=== PATIENT | male | born 1950 | race Caucasian/White ===

== ENCOUNTER 2018-10-22 23:55 | Inpatient (IN) | payer OTHER, MEDICARE ==
[~2018-10-22] VITALS: Ht 172.7 cm; Wt 76.7 kg
[2018-10-23 00:03] VITALS: BP 137/83
[2018-10-23 00:23] LABS: MCH 29.9 pg (26.0-34.0); MCHC 33.3 g/dL (28.0-37.0); MCV 89.7 fL (80.0-100.0); PLATELET COUNT 210 thou/uL (150-400); RBC 5.01 mil/uL (4.50-6.00); RDW 13.7 % (10.5-14.5); WBC 15.4 thou/uL (4.0-11.0)
[2018-10-23 00:31] LABS: CALCIUM 9.3 mg/dL (8.5-10.1); CREATININE 1.1 mg/dL (0.7-1.3); POTASSIUM 3.8 mmol/L (3.5-5.1)
[2018-10-23 00:37] LABS: APTT 24.3 Seconds (24.5-32.8); PROTIME 10.6 Seconds (9.3-11.4)
[2018-10-23 00:41] LABS: ALBUMIN 3.7 g/dL (3.4-5.0); MAGNESIUM 1.8 mg/dL (1.8-2.4); TOTAL BILIRUBIN 0.2 mg/dL (<0.1-1.0); TOTAL PROTEIN 6.7 g/dL (6.4-8.2); TROPONIN-I 0.08 ng/mL (<0.06)
[2018-10-23 00:50] LABS: ATYPICAL LYMPHS 1 %
[2018-10-23 02:00] VITALS: BP 126/74
[2018-10-23 02:10] LABS: CHOLESTEROL 165 mg/dL (<200); HDL CHOLESTEROL 40 mg/dL (>40); LDL CHOLESTEROL 99 mg/dL (<100); SERUM ASSESSMENT Clear; TC:HDL 4.1 Ratio (Not establshd); TRIGLYCERIDE 132 mg/dL (<150); VLDL 26 mg/dL (<40)
--- NOTE | 2018-10-23 05:25 | NUR ---
ASSUME CARE 0200. DENIES ANY PAIN/ TOLERATES ACTIVITY WELL. ASSESSMENT CHARTED. PROGRESSING TOWARDS POC. PLAN IS TO STAY NPO AND CONSULT CARDIOLOGY FOR FURTHER CARE. SR NOTED ON MONITOR. WILL CONTINUE TO MONITOR AND FOLLOW WITH POC
[2018-10-23 07:15] VITALS: BP 133/93
[2018-10-23] MEDS ORDERED: ATORVASTATIN CA40 MG PO (10:12)
[2018-10-23] MEDS ORDERED: ASPIR 8181 MG PO (10:12)
[2018-10-23] MEDS ORDERED: EFFIENT10 MG PO (10:12)
[2018-10-23] MEDS ORDERED: TOPROL XL25 MG PO (10:12)
[2018-10-23 12:00] VITALS: BP 141/82
--- NOTE | 2018-10-23 12:02 | CATHLAB ---
[facility] [address] [place] [address] INVASIVE PROCEDURE REPORT Name: COLLINS LEVY Room #: 200-I ADM IN [facility]#: [id number] ������������� Admission: 10/23/18 ������������� Attend Phys: Jim Mason MD Discharge: ��� ������������� ��� Date of : 54 Date of Service: 10/23/18 1202 �� Report #: [id number] �������� ��������������������������������������������[id number] THIS REPORT FOR: //name// APPROVED REPORT Study performed: 10/23/2018 08:23:09 Patient Details Patient Status: In-Patient Room #: The patient is a 68 year-old male Event Personnel Piyush Pinzon Body Repairer, Roge Sow RN, Yuliana Herman Monitor, Archana Russell Scrub Procedures Performed Art Access - R femoral artery* 53777 Initial Mod Sed Same Phys/QHP Gr5y 180567 63055 Mod Sed Same Phys/QHP Ea 807275 Left Heart Cath w/or w/o Coronaries [id number] [facility] Place w/wo Plasty Single LAD 410181 Hemostasis w/ Mynx Indication Non-STEMI (>6 hrs to = 12 hrs), Chest pain Procedure Narrative The patient was brought urgently to the Cardiac Catheterization Laboratory and was prepped and draped in a sterile manner. The Right Groin^ was infiltrated with 1% Lidocaine subcutaneous anesthesia. A PINNACLE 6FR Sheath #[id number] sheath was inserted into the RFA^. Coronary angiography was performed using coronary diagnostic catheters. The right coronary system was accessed and visualized with a JR 4 catheter. The left coronary system was accessed and visualized with a JL 4.5 catheter. The left ventricle was accessed and visualized with a Pigtail catheter. Left ventricular/Aortic Valve gradient assessed via catheter pullback. Left ventriculogram was performed in REYNA projection. Closure device was deployed with a 6 Fr Mynx. The patient tolerated the procedure well and there were no complications associated with the procedure. There was no hematoma. Intraoperative Conscious Sedation Sedation start time: 08:40 Case end Time: 09:44 Fentanyl 100 mcg Versed [address] [address] INVASIVE PROCEDURE REPORT Name: COLLINS LEVY Room #: 200-I [facility]#: [id number] ������������� Admission: 10/23/18 ������������� Attend Phys: Jim Mason MD Discharge: ��� ������������� ��� Date of : 54 Date of Service: 10/23/18 1202 �� Report #: [id number] �������� ��������������������������������������������[id number] Fluoro Time: 11.58 minutes Dose: DAP 68821.00 cGycm2 1864 mGy Contrast Type and Amount: Omnipaque 235 ml Coronary Angiography The patient's coronary anatomy is right dominant. Diagnostic Cath Left Main Normal left main LAD The left anterior descending exhibited a severe, ulcerated proximal plaque with 95-99% stenosis There appeared to be distal embolization to the very apical portion of the LAD Diagonal 1 Small first diagonal branch, normal Circumflex The circumflex was large and comprised of a single bifurcating marginal branch, angiographically normal OM1 Large bifurcating marginal branch, angiographically normal Right Coronary Normal dominant right coronary R PDA Large angiographically normal posterior descending branch RPLV Large, angiographically normal posterolateral branch Ramus Large ramus branch, angiographically normal Left Ventriculography The left ventricle is normal in size with abnormal contractility. The left ventricular ejection fraction is estimated to be 55-60%. Left ventricular wall motion abnormalities are present. There is no mitral insufficiency. Apical and inferoapical hypokinesis Hemodynamics The aortic pressure is 131/82 mmHg with a mean of 103 mmHg. The left ventricular pressure is 124/8 mmHg with a mean of mmHg. The left ventricular end diastolic pressure is 24 mmHg. PCI Technique Lesion Anticoagulation was achieved with Heparin, Integrilin. Patient was preloaded with Effient. Percutaneous coronary intervention was performed on the proximal left anterior descending artery segment. The lesion stenosis prior to intervention was 99% with DESTINEE 3 flow. A LAUNCHER 6FR EBU 4 #[id number] Guide Catheter was used to engage the ostium. A Luge Wire .014 x 182CM #[id number] Interventional Guidewire was used to cross the lesion. BALLOON DILATION A Balloon catheter Euphora RX 3.0 x 12 #[id number] was inserted and [facility] [address] [place] [address] INVASIVE PROCEDURE REPORT Name: FAHAD LEVYAnnita Oshea Room #: 200-I [facility] IN ..#: [id number] ������������� Admission: 10/23/18 ������������� Attend Phys: Jim Mason MD Discharge: ��� ������������� ��� Date of : 54 Date of Service: 10/23/18 1202 �� Report #: [id number] �������� ��������������������������������������������[id number] inflated up to 12.00atm for 27seconds. Repeat angiography revealed the following post-dilatation results: moderate residual stenosis. STENT DEPLOYMENT A drug-eluting stent XIENCE ANETA RX 3.5 X 15 #[id number] was inserted and inflated up to 12.00atm for 30seconds. Repeat angiography revealed the following post-stent deployment results: 0% residual stenosis. POST STENT DEPLOYMENT BALLOON DILATION A Balloon catheter Euphora NC RX 3.5 x 12 #[id number] was inserted and inflated up to 18.00atm for 32seconds. Additional Inflation: 22.00atm for 31seconds. Final angiography reveals 0 % stenosis with DESTINEE 3 flow. Conclusion 1. Globally normal left ventricular systolic function with apical and inferoapical hypokinesis. Ejection fraction 55% 2. Normal left main 3. Severe proximal 95-99% LAD stenosis, stented with a 3.5 x 15 Aneta medicated stent, post-dilated to 3.6mm 4. Normal circumflex and dominant right coronary. Medications Administered Aspirin (any) Beta Maral (any) Statin (any) Prasugrel Cardiac Rehabilitation Referral Smoking Cessation ��������������������������������������������� <ELECTRONICALLY SIGNED> ���������������������������������������� By: Piyush Pinzon MD, [facility] ��������������������������������������������� 10/23/181201 01 01 Piyush Pinzon MD, FACC /INF
--- NOTE | 2018-10-23 12:13 | EKG ---
[place] [address] [facility] [place] [address] ELECTROCARDIOGRAM REPORT Name: COLLINS LEVY Room #: 200-I ADM IN [facility].#: [id number] ������������������ Admission: 10/23/18 ������������������ Attend Phys: Jim Mason MD Discharge: ������������������ Date of : 54 Report #: [id number] ����������������������������������������������������������������� [id number] THIS REPORT FOR: //name// [facility] ED Test Date: 2018-10-22 Test Time: 23:58:43 Pat Name: COLLINS LEVY Department: Room: 200 Gender: M Credit Risk Officer: MUNA : 1950 Requested By: Tommy Mendez Order Number: [id number] MD: Piyush Pinzon Measurements Intervals [place] Rate: 69 P: 60 [place]: 168 QRS: 21 QRSD: 85 T: 22 QT: 402 QTc: 431 Interpretive Statements Sinus rhythm Left atrial enlargement RSR' in V1 or V2, probably normal variant No previous ECG available for comparison Electronically Signed On 10-23-2018 12:12:53 CDT by Piyush Pinzon [email or web address] ��������������������������������������������� <ELECTRONICALLY SIGNED> ���������������������������������������� By: Piyush Pinzon MD, [facility] ��������������������������������������������� 10/23/18 1212 57 Piyush Pinzon MD, [facility] /EPI
--- NOTE | 2018-10-23 12:18 | EKG ---
[place] [address] [facility] [place] [address] ELECTROCARDIOGRAM REPORT Name: COLLINS LEVY Room #: 200-I ADM IN .R.#: [id number] ������������������ Admission: 10/23/18 ������������������ Attend Phys: Jim Mason MD Discharge: ������������������ Date of : 54 Report #: [id number] ����������������������������������������������������������������� [id number] THIS REPORT FOR: //name// [facility] Test Date: 2018-10-23 Test Time: 10:33:35 Pat Name: COLLINS LEVY Department: Room: 200 I Gender: M Property Management Supervisor: Ibeth REYNOLDS : 1950 Requested By: Piyush Pinzon Order Number: [id number] MD: Piyush Pinzon Measurements Intervals [place] Rate: 58 P: 37 [place]: 187 QRS: 1 QRSD: 86 T: 3 QT: 437 QTc: 430 Interpretive Statements Sinus bradycardia Otherwise no significant abnormality No previous ECG available for comparison Electronically Signed On 10-23-2018 12:18:06 CDT by Piyush Pinzon [email or web address] ��������������������������������������������� <ELECTRONICALLY SIGNED> ���������������������������������������� By: Piyush Pinzon MD, [facility] ��������������������������������������������� 10/23/18 1218 1033 1033 Piyush Pinzon MD, FACC /EPI
--- NOTE | 2018-10-23 15:52 | NUR ---
AAOX4. CALM, COOPERATIVE. DOWN EARLY THIS SHIFT FOR CARDIAC CATH. BACK AT 1010, REPORT FROM MARLO JO. RECEIVED ASA AND EFFIENT DOWNSTAIRS POST PROCEDURE. VS AND BEDREST ORDERED. DRESSING RIGHT GROIN CDI, SITE SOFT AND NONPAINFUL. FREQUENT CHECKS; WILL CONTINUE TO MONITOR.
[2018-10-23 19:25] VITALS: BP 140/61; BP 140/78
[2018-10-24] VITALS: BP 109/68
[2018-10-24 04:00] VITALS: BP 101/67
[2018-10-24 05:23] LABS: HEMATOCRIT 45.7 % (42.0-52.0); HEMOGLOBIN 15.6 gm/dL (14.0-18.0); MCH 30.8 pg (26.0-34.0); MCHC 34.1 g/dL (28.0-37.0); MCV 90.5 fL (80.0-100.0); RBC 5.05 mil/uL (4.50-6.00); RDW 13.5 % (10.5-14.5); WBC 9.3 thou/uL (4.0-11.0)
[2018-10-24 05:44] LABS: ALBUMIN 3.3 g/dL (3.4-5.0); CALCIUM 8.6 mg/dL (8.5-10.1); TOTAL BILIRUBIN 0.7 mg/dL (<0.1-1.0); TOTAL PROTEIN 6.3 g/dL (6.4-8.2)
--- NOTE | 2018-10-24 05:50 | NUR ---
ASSUME CARE 1900. PT/VITALS STABLE. DENEIS ANY PAIN. UP AD MAILE. ADDEQUATE REST NOTED. RIGHT GROIN SITE CDI. ASSESSMENT CHARTED. PROGRESSING WELL WITH POC. PLAN IS POSSIBLE DISCHARGE HOME TODAY. WILL CONTINUE TO MONITOR ANDFOLLOW WITH POC
[2018-10-24 05:54] LABS: TROPONIN-I 2.21 ng/mL (<0.06)
[2018-10-24 07:25] VITALS: BP 116/72
--- NOTE | 2018-10-24 12:00 | NUR ---
DISCHARGED TO HOME ACCOMPANIED BY . RIGHT GROIN CLEAN AND DRY WITHOUT INDERATION. GOOD APPETITE. DENIES PAIN. GOOD TOLERATION OF ACTIVITY. ON ROOM AIR. NO EDEMA.
[2018-10-24 12:05] VITALS: BP 116/72
[2018-10-24 12:36] VITALS: BP 116/72
--- NOTE | 2018-10-25 10:21 | EKG ---
[place] [address] [address] [facility] [place] [address] ELECTROCARDIOGRAM REPORT Name: COLLINS LEVY Room #: 200-I DIS IN M.R.#: [id number] ������������������ Admission: 10/23/18 ������������������ Attend Phys: Jim Mason MD Discharge: 10/24/18 ������������������ Date of : 54 Report #: [id number] ����������������������������������������������������������������� [id number] THIS REPORT FOR: //name// [facility] Test Date: 2018-10-24 Test Time: 07:38:31 Pat Name: COLLINS LEVY Department: Room: 200 I Gender: M Renewals Specialist: Ranjit SNEED : 1950 Requested By: Piyush Pinzon Order Number: [id number] MD: Piyush Pinzon Measurements Intervals [place] Rate: 61 P: 32 [place]: 183 QRS: -1 QRSD: 93 T: -2 QT: 424 QTc: 427 Interpretive Statements Sinus rhythm RSR' in V1 or V2, probably normal variant Borderline T abnormalities, inferior leads Compared to ECG 10/23/2018 10:33:35 RSR' in V1 or V2 now present T-wave abnormality now present Sinus bradycardia no longer present Electronically Signed On 10-25-2018 10:21:41 CDT by Piyush Pinzon [email or web address] ��������������������������������������������� <ELECTRONICALLY SIGNED> ���������������������������������������� By: Piyush Pinzon MD, [facility] ��������������������������������������������� 10/25/18 1021 0738 Piyush Pinzon MD, FAC /EPI
== END 2018-10-24 12:00 | disposition home or self-care (01) | DRG 246 ==
LOC: ER 23:55 → EROBS 10-23 01:09 → 2N 10-23 01:09
PROVIDERS: Emergency Medicine; Internal Medicine; Nurse Practitioner Acute Care; ADMIT Hospitalist
PROC: 4A023N7 Measurement of Cardiac Sampling and Pressure, Left Heart, Percutaneous Approach (ICD-10-PCS; principal; 2018-10-23)
PROC: 027034Z Dilation of Coronary Artery, One Artery with Drug-eluting Intraluminal Device, Percutaneous Approach (ICD-10-PCS; principal; 2018-10-23)
PROC: B2111ZZ Fluoroscopy of Multiple Coronary Arteries using Low Osmolar Contrast (ICD-10-PCS; principal; 2018-10-23)
PROC: B2151ZZ Fluoroscopy of Left Heart using Low Osmolar Contrast (ICD-10-PCS; principal; 2018-10-23)
DX: I21.4 Non-ST elevation (NSTEMI) myocardial infarction (principal); I50.33 Acute on chronic diastolic (congestive) heart failure; F17.210 Nicotine dependence, cigarettes, uncomplicated; Z96.659 Presence of unspecified artificial knee joint; E78.5 Hyperlipidemia, unspecified; I25.10 Atherosclerotic heart disease of native coronary artery without angina pectoris; Z98.49 Cataract extraction status, unspecified eye; Z82.49 Family history of ischemic heart disease and other diseases of the circulatory system; Z82.3 Family history of stroke; Z71.6 Tobacco abuse counseling; Z72.89 Other problems related to lifestyle; Z79.82 Long term (current) use of aspirin; Z79.899 Other long term (current) drug therapy
CPT/HCPCS: 10081

== ENCOUNTER → 2018-10-27 | Outpatient (CLI) | payer OTHER, MEDICARE ==
[~2018-10-27] MED LIST: ASPIR 8181 MG PO; ATORVASTATIN CA40 MG PO; EFFIENT10 MG PO; TOPROL XL25 MG PO
== END ==
LOC: ULTRA 10:21
DX: R19.01 Right upper quadrant abdominal swelling, mass and lump (principal)

== ENCOUNTER 2019-05-16 23:24 | Inpatient (IN) | payer OTHER, MEDICARE ==
[~2019-05-16] VITALS: Ht 172.7 cm; Wt 78.2 kg
[2019-05-16 23:26] VITALS: BP 164/94
[2019-05-17 00:33] LABS: ABSOLUTE NEUTROPHILS 5.8 thou/uL (1.4-8.2); BASOPHILS 0.2 % (0.0-2.0); EOSINOPHILS 4.5 % (0.0-3.0); HEMATOCRIT 44.9 % (42.0-52.0); HEMOGLOBIN 15.1 gm/dL (14.0-18.0); LYMPHOCYTES 23.5 % (24.0-44.0); MCH 30.6 pg (26.0-34.0); MCHC 33.7 g/dL (28.0-37.0); MCV 90.7 fL (80.0-100.0); MONOCYTES 9.1 % (1.0-8.0); PLATELET COUNT 218 thou/uL (150-400); POLYS 62.7 % (36.0-66.0); RBC 4.94 mil/uL (4.50-6.00); RDW 13.3 % (10.5-14.5); WBC 9.2 thou/uL (4.0-11.0)
[2019-05-17 00:37] LABS: ANION GAP 7 mmol/L (7-16); BUN 15 mg/dL (7-18); CALCIUM 9.4 mg/dL (8.5-10.1); CHLORIDE 106 mmol/L (98-107); CO2 29 mmol/L (21-32); CREATININE 1.2 mg/dL (0.7-1.3); GLUCOSE 132 mg/dL (74-106); POTASSIUM 3.7 mmol/L (3.5-5.1); SODIUM 142 mmol/L (136-145)
[2019-05-17 00:47] LABS: ALBUMIN 3.8 g/dL (3.4-5.0); MAGNESIUM 1.9 mg/dL (1.8-2.4); SGOT 28 U/L (15-37); SGPT 44 U/L (30-65); TOTAL BILIRUBIN 0.5 mg/dL (<0.1-1.0); TOTAL PROTEIN 6.9 g/dL (6.4-8.2); TROPONIN-I <0.06 ng/mL (<0.06)
[2019-05-17 00:48] LABS: PROTIME 10.8 Seconds (9.3-11.4)
[2019-05-17 01:34] VITALS: BP 138/83
[2019-05-17 01:50] VITALS: BP 125/79
--- NOTE | 2019-05-17 03:00 | NUR ---
ADMIT FROM ED. PT WAS AT HOME AWAKENED AFTER COUGHING FOR APPROX 30 MINUTES, SWALLOWED HIS SPUTUM. AFTER THAT OCCURENCE PT FELT A SIMILAR DISCOMFORT IN HIS CHEST THAT HE HAD PREVIOUSLY FELT 6 MONTHS AGO THAT RESULTED IN A CARDIAC STENT. PT AND HIS CAME INTO ED FOR FURTHER EVALUATION. PT HOPES TO DC IN AM. AOX4, INDEP STEADY AMBULATION, SMILING, PLEASANT, CALM DENIES ANY CURRENT CHEST DISCOMFORT OR COUGH. IVF INTACT. LOGISTICS/SHIPPER VISITED WITH PT ON 3W. TROP LABS ORDERED. TELE SR.
[2019-05-17 04:35] VITALS: BP 114/73
--- NOTE | 2019-05-17 06:29 | NUR ---
PT HAD ALL AM LABS DRAWN AT 0300ISH. TROP WAS SCHEDULED FOR 0600ISH. PT REFUSED ANOTHER DRAW, LAB WILL REATTEMPT AT 0900.
[2019-05-17 07:45] VITALS: BP 142/90
--- NOTE | 2019-05-17 08:14 | EKG ---
[place] [address] [facility] [place] [address] ELECTROCARDIOGRAM REPORT Name: CAMCOLLINS Dayo Room #: 352-P ADM IN M.R.#: [id number] Admission: 05/17/19 Attend Phys: Renea Broderick Discharge: Date of : 54 Report #: [id number] THIS REPORT FOR: //name// [facility] ED Test Date: 2019-05-16 Test Time: 23:40:17 Pat Name: COLLINS LEVY Department: Room: [facility] Gender: M Pigs Feet Finisher: adolph : 1950 Requested By: Tommy Mendez Order Number: [id number] MD: Destin Marx Measurements Intervals [place] Rate: 71 P: 22 [place]: 174 QRS: -26 QRSD: 97 T: 16 QT: 400 QTc: 435 Interpretive Statements Sinus rhythm Probable left atrial enlargement RSR' in V1 or V2, probably normal variant Inferior infarct, old Compared to ECG 10/24/2018 07:38:31 Myocardial infarct finding now present T-wave abnormality no longer present Electronically Signed On 05-17-2019 8:14:19 DRILL RUNNER by Destin Marx [email or web address] <ELECTRONICALLY SIGNED> By: Destin Marx MD 05/17/19 0814 2340 2340 Destin Marx MD /EPI
[2019-05-17 09:20] LABS: CHOLESTEROL 131 mg/dL (<200); HDL CHOLESTEROL 50 mg/dL (>40); LDL CHOLESTEROL 65 mg/dL (<100); TC:HDL 2.6 Ratio (Not establshd); TRIGLYCERIDE 81 mg/dL (<150); VLDL 16 mg/dL (<40)
--- NOTE | 2019-05-17 12:44 | EXE ---
[facility] [address] [place] [address] STRESS ECHOCARDIOGRAM Name: COLLINS LEVY Dayo Room #: 352-P [facility] IN M.R.#: [id number] Admission: 05/17/19 Attend Phys: Renea Ramirez Discharge: Date of : 54 Report #: [id number] THIS REPORT FOR: //name// APPROVED REPORT Study performed: 05/17/2019 10:40:17 Exam: Stress Echocardiogram Indication: Chest pain Patient Location: Echo lab Stress Nurse: Sherlyn Bhakta RN Room #: 352 Status: routine Ht: 5 ft 7 in HR: 59 bpm BP: 136/74 mmHg Rhythm: Bradycardia Medical History Medical History: CAD s/p stent Cardiac Risk Factors: HTN, Hyperlipidemia Previous Cardiac Procedures: PCI Exercise History: Physically active Procedure The patient underwent an Exercise Stress Test using the Bryn Protocol. Blood pressure, heart rate, and EKG were monitored. An Echocardiogram was performed by laundry technician in four stages in quad fashion. At peak stress, four selected images were obtained and placed side by side with resting images for comparison. Stress Test Details Stress Test: Exercise stress testing was performed using a Bryn protocol. HR Resting HR: 59 bpm Max Heart Rate (APMHR): 153 bpm Max HR Achieved: 162 bpm Target HR (85% APMHR): 130 bpm % of APMHR: 105 Recovery HR: 85 bpm HR response to stress: Normal HR response to stress BP Resting BP: 136/74 mmHg Max BP: 162/92 mmHg Recovery BP: 120/80 mmHg [facility] [address] [place] [address] STRESS ECHOCARDIOGRAM Name: COLLINS LEVY Room #: 352-P [facility] IN [facility].#: [id number] Admission: 05/17/19 Attend Phys: Renea Ramirez Discharge: Date of : 54 Report #: [id number] BP response to stress: Normal blood pressure response to stress. ECG Resting ECG: Sinus Rhythm Stress ECG: Sinus Rhythm ST Change: Normal Maximum ST Deviation: 0 mm Arrhythmia: VPC's Recovery ECG: Sinus Rhythm Recovery ST Change: Normal Recovery ST Deviation: 0 mm Recovery Arrhythmia: None Clinical Reason for Termination: Maximal effort Exercise duration: 10 min sec Highest Stage Achieved: Stage 4: 4.2 mph at 16% grade. Exercise capacity: 13.3 METs Overall Exercise Capacity for Age: Good Angina Score: None Stress ECG Conclusion ECG: Non-ischemic Clinical: Non-ischemic Michel Treadmill Score is 10.0 which is Low risk. Pre-Stress Echo The resting Echocardiogram showed normal left ventricular contractility with an estimated Ejection Fraction of about >55%. The resting echocardiogram demonstrated normal wall motion in all wall segments. Post-Stress Echo The stress Echocardiogram showed normal left ventricular contractility with an estimated Ejection Fraction of about 60-65%. Compared to rest, there were no stress-induced wall motion abnormalities. Conclusion Clinical Response: Non-ischemic Exercise Capacity: Average Stress ECG Response: Non-ischemic Stress Echo Images: Non-ischemic The left ventricle is normal in size and wall thickness in both the rest and stress images. Normal stress echocardiogram with submaximal exercise stress. [facility] [place] [address] STRESS ECHOCARDIOGRAM Name: COLLINS LEVY Room #: 352-P [facility] IN [facility]#: [id number] Admission: 05/17/19 Attend Phys: Renea Ramirez Discharge: Date of : 54 Report #: [id number] <Conclusion> The left ventricle is normal in size and wall thickness in both the rest and stress images. Normal stress echocardiogram with submaximal exercise stress. <ELECTRONICALLY SIGNED> By: Piyush Pinzon MD, FACC 05/17/19 1243 124 124 Piyush Pinzon MD, FACC /INF
[2019-05-17 13:02] VITALS: BP 142/90
[2019-05-17 13:16] VITALS: BP 142/90
--- NOTE | 2019-05-17 13:24 | NUR ---
DISCHARGE INSTRUCTIONS REVIEWED WITH PT, ALL QUESTIONS ANSWERED. PT DISCHARGE INSTRUCTIONS SENT WITH PT. PIV AND TELE REMOVED.
[2019-05-18 00:08] LABS: GLYCOHEMOGLOBIN (HGB A1C) 5.5 % (4.8-5.6)
== END 2019-05-17 13:30 | disposition home or self-care (01) | DRG 313 ==
LOC: ER 23:24 → EROBS 05-17 01:12 → 3W 05-17 01:12
PROVIDERS: Emergency Medicine; Nurse Practitioner; Nurse Practitioner Adult Health; ADMIT Hospitalist
DX: R07.89 Other chest pain (principal); I25.10 Atherosclerotic heart disease of native coronary artery without angina pectoris; F10.10 Alcohol abuse, uncomplicated; R73.9 Hyperglycemia, unspecified; Z96.659 Presence of unspecified artificial knee joint; E78.5 Hyperlipidemia, unspecified; K21.9 Gastro-esophageal reflux disease without esophagitis; Z95.5 Presence of coronary angioplasty implant and graft; Z82.49 Family history of ischemic heart disease and other diseases of the circulatory system; Z87.891 Personal history of nicotine dependence; Z86.73 Personal history of transient ischemic attack (TIA), and cerebral infarction without residual deficits; I25.2 Old myocardial infarction; Z71.41 Alcohol abuse counseling and surveillance of alcoholic; Z79.82 Long term (current) use of aspirin; Z79.899 Other long term (current) drug therapy
CPT/HCPCS: 10879

== ENCOUNTER → 2019-08-25 | Outpatient (CLI) | payer OTHER, MEDICARE | LOC: SJCVC 09:54 | DX: I25.10 Atherosclerotic heart disease of native coronary artery without angina pectoris (principal); E78.5 Hyperlipidemia, unspecified; I25.2 Old myocardial infarction; Z96.653 Presence of artificial knee joint, bilateral; Z79.899 Other long term (current) drug therapy ==

== ENCOUNTER → 2020-02-17 | Outpatient (CLI) | payer OTHER, MEDICARE | LOC: SJCVC 10:38 | PROVIDERS: ATTEND Internal Medicine | DX: I25.10 Atherosclerotic heart disease of native coronary artery without angina pectoris (principal); E78.5 Hyperlipidemia, unspecified; Z79.899 Other long term (current) drug therapy; Z87.891 Personal history of nicotine dependence ==

== ENCOUNTER 2020-07-19 05:14 | Emergency (ER) | payer OTHER, MEDICARE ==
[~2020-07-19] VITALS: Ht 175.3 cm; Wt 77.1 kg
[2020-07-19 07:34] LABS: ABSOLUTE NEUTROPHILS 6.4 thou/uL (1.4-8.2); BASOPHILS 1.1 % (0.0-2.0); EOSINOPHILS 3.1 % (0.0-3.0); HEMATOCRIT 43.1 % (42.0-52.0); HEMOGLOBIN 14.3 gm/dL (14.0-18.0); MCH 30.1 pg (26.0-34.0); MCHC 33.3 g/dL (28.0-37.0); MCV 90.5 fL (80.0-100.0); MONOCYTES 8.6 % (1.0-8.0); PLATELET COUNT 202 thou/uL (150-400); POLYS 63.2 % (36.0-66.0); RBC 4.76 mil/uL (4.50-6.00); RDW 13.7 % (10.5-14.5); WBC 10.2 thou/uL (4.0-11.0)
[2020-07-19 07:43] LABS: ANION GAP 10 mmol/L (7-16); BUN 16 mg/dL (7-18); CALCIUM 8.7 mg/dL (8.5-10.1); CHLORIDE 105 mmol/L (98-107); CO2 27 mmol/L (21-32); CREATININE 1.2 mg/dL (0.7-1.3); GLUCOSE 96 mg/dL (74-106); POTASSIUM 3.5 mmol/L (3.5-5.1); SODIUM 142 mmol/L (136-145)
[2020-07-19 07:52] LABS: ALBUMIN 3.8 g/dL (3.4-5.0); SGOT 28 U/L (15-37); SGPT 40 U/L (16-63); TOTAL BILIRUBIN 0.8 mg/dL (0.2-1.0); TOTAL PROTEIN 6.6 g/dL (6.4-8.2); TROPONIN-I <0.06 ng/mL (<0.06)
[2020-07-19 07:56] LABS: URINE BILIRUBIN NEGATIVE (Negative); URINE BLOOD NEGATIVE (Negative); URINE CLARITY CLEAR; URINE COLOR YELLOW; URINE GLUCOSE-RANDOM* NEGATIVE (Negative); URINE KETONES NEGATIVE (Negative); URINE LEUKOCYTES-REFLEX NEGATIVE (Negative); URINE NITRITE-REFLEX NEGATIVE (Negative); URINE PROTEIN (DIPSTICK) NEGATIVE (Negative); URINE SPECIFIC GRAVITY <= 1.005 (1.005-1.035); URINE UROBILINOGEN 0.2 E.U./dl (0.2-1.0)
--- NOTE | 2020-07-19 10:11 | EKG ---
[place] [address] [place] [address] ELECTROCARDIOGRAM REPORT Name: COLLINS LEVY Room #: [facility]#: [id number] Admission: 07/19/20 Attend Phys: Discharge: Date of : 54 Report #: [id number] [facility] ED Test Date: 2020-07-19 Test Time: 09:29:19 Pat Name: COLLINS LEVY Department: Room: Gender: M Crop Farm Workers: DAVEY : 1950 Requested By: Devante Katz Order Number: [id number] MD: Papo Hays Measurements Intervals [place] Rate: 58 P: 24 MT: 186 QRS: 11 QRSD: 85 T: 0 QT: 443 QTc: 436 Interpretive Statements Sinus rhythm RSR' in V1 or V2, probably normal variant Baseline wander in lead(s) V6 Compared to ECG 05/16/2019 23:40:17 Myocardial infarct finding no longer present Electronically Signed On 07-19-2020 10:11:08 MERCHANDISING MANAGER by Papo Hays [email or web address] <ELECTRONICALLY SIGNED> By: Papo Hays MD, [facility] 07/19/20 1011 8 8 Papo Hays MD, FAC /EPI
[2020-07-19 10:30] VITALS: BP 142/84
--- NOTE | 2020-07-19 15:25 | EKG ---
[address] [place] [address] ELECTROCARDIOGRAM REPORT Name: COLLINS LEVY [id number] Admission: 07/19/20 Attend Phys: Discharge: 07/19/20 Date of : 54 Report #: [id number] [facility] ED Test Date: 2020-07-19 Test Time: 05:38:29 Pat Name: COLLINS LEVY Department: Room: Gender: Surfboard Maker: MAURO : 1950 Requested By: Devante Katz Order Number: [id number] MD: Papo Hays Measurements Intervals [place] Rate: 60 P: -3 MT: 186 QRS: 0 QRSD: 91 T: 9 QT: 438 QTc: 438 Interpretive Statements Sinus rhythm Non specific ST-T changes Compared to ECG 05/16/2019 23:40:17 ST (T wave) deviation now present Myocardial infarct finding no longer present Electronically Signed On 07-19-2020 15:25:42 SQL DATABASE DEVELOPER by Papo Hays [email or web address] <ELECTRONICALLY SIGNED> By: Papo Hays MD, [facility] 07/19/20 1525 7 7 Papo Hays MD, [facility] /EPI
== END 2020-07-19 10:30 | disposition home or self-care (01) ==
LOC: ER 05:14
PROVIDERS: Emergency Medicine
DX: R42 Dizziness and giddiness (principal); I10 Essential (primary) hypertension; E78.5 Hyperlipidemia, unspecified; Z79.82 Long term (current) use of aspirin; Z79.899 Other long term (current) drug therapy; Z87.891 Personal history of nicotine dependence

== ENCOUNTER → 2020-08-23 | Outpatient (CLI) | payer OTHER, MEDICARE | LOC: SJCVC 14:33 | PROVIDERS: ATTEND Internal Medicine | DX: R00.1 Bradycardia, unspecified (principal); I25.10 Atherosclerotic heart disease of native coronary artery without angina pectoris; E78.5 Hyperlipidemia, unspecified; Z87.891 Personal history of nicotine dependence; Z72.89 Other problems related to lifestyle; Z79.82 Long term (current) use of aspirin; Z79.899 Other long term (current) drug therapy ==

== ENCOUNTER 2021-01-13 00:41 | Emergency (ER) | payer OTHER, MEDICARE ==
[~2021-01-13] VITALS: Ht 172.7 cm; Wt 77.1 kg
[2021-01-13 01:25] LABS: ABSOLUTE NEUTROPHILS 5.9 thou/uL (1.4-8.2); BASOPHILS 1.9 % (0.0-2.0); EOSINOPHILS 5.2 % (0.0-3.0); HEMATOCRIT 42.8 % (42.0-52.0); HEMOGLOBIN 14.4 gm/dL (14.0-18.0); LYMPHOCYTES 24.9 % (24.0-44.0); MCH 30.4 pg (26.0-34.0); MCHC 33.7 g/dL (28.0-37.0); MONOCYTES 8.1 % (1.0-8.0); PLATELET COUNT 192 thou/uL (150-400); POLYS 59.9 % (36.0-66.0); RBC 4.76 mil/uL (4.50-6.00); RDW 13.3 % (10.5-14.5); WBC 9.9 thou/uL (4.0-11.0)
[2021-01-13 01:40] LABS: ANION GAP 8 mmol/L (7-16); BUN 21 mg/dL (7-18); CALCIUM 8.7 mg/dL (8.5-10.1); CHLORIDE 105 mmol/L (98-107); CO2 27 mmol/L (21-32); CREATININE 1.3 mg/dL (0.7-1.3); GLUCOSE 123 mg/dL (74-106); POTASSIUM 3.7 mmol/L (3.5-5.1); SODIUM 140 mmol/L (136-145)
[2021-01-13 01:51] LABS: ALBUMIN 3.5 g/dL (3.4-5.0); LIPASE 431 U/L (73-393); SGOT 25 U/L (15-37); SGPT 34 U/L (16-63); TOTAL BILIRUBIN 0.5 mg/dL (0.2-1.0); TOTAL PROTEIN 6.3 g/dL (6.4-8.2); TROPONIN-I <0.06 ng/mL (<0.06)
[2021-01-13 03:54] VITALS: BP 141/93
--- NOTE | 2021-01-13 08:46 | EKG ---
[place] [address] [place] [address] ELECTROCARDIOGRAM REPORT Name: COLLINS LEVY Room #: [facility]#: [id number] Admission: 01/13/21 Attend Phys: Discharge: 01/13/21 Date of : 54 Report #: [id number] [facility] ED Test Date: 2021-01-13 Test Time: 00:47:59 Pat Name: COLLINS LEVY Department: Room: Gender: M Associate Account Director: penelope : 1950 Requested By: Franck Smith Order Number: [id number] MD: Papo Hays Measurements Intervals [place] Rate: 66 P: 55 [place]: 171 QRS: -7 QRSD: 99 T: 33 QT: 416 QTc: 436 Interpretive Statements Sinus rhythm Probable left atrial enlargement RSR' in V1 or V2, right VCD or RVH Borderline T abnormalities, anterior leads Compared to ECG 07/19/2020 09:29:19 Right ventricular hypertrophy now present T-wave abnormality now present Electronically Signed On 01-13-2021 8:46:20 CDT by Papo Hays [email or web address] <ELECTRONICALLY SIGNED> By: Papo Hays MD, [facility] 01/13/21 0846 0047 0047 Papo Hays MD, [facility] /EPI
== END 2021-01-13 03:54 | disposition home or self-care (01) ==
LOC: ER 00:41
PROVIDERS: Emergency Medicine
DX: R07.89 Other chest pain (principal); Z79.82 Long term (current) use of aspirin; Z79.899 Other long term (current) drug therapy; Z87.891 Personal history of nicotine dependence

== ENCOUNTER → 2021-02-14 | Outpatient (CLI) | payer OTHER, MEDICARE | LOC: SJCVCIMAG 07:40 | PROVIDERS: ATTEND Internal Medicine | DX: R00.0 Tachycardia, unspecified (principal); I25.10 Atherosclerotic heart disease of native coronary artery without angina pectoris; I10 Essential (primary) hypertension; E78.5 Hyperlipidemia, unspecified; Z98.890 Other specified postprocedural states; Z87.891 Personal history of nicotine dependence; Z79.82 Long term (current) use of aspirin; Z79.899 Other long term (current) drug therapy; Z72.89 Other problems related to lifestyle ==

== ENCOUNTER 2021-05-20 03:01 | Emergency (ER) | payer OTHER, MEDICARE ==
[~2021-05-20] VITALS: Ht 172.7 cm; Wt 74.8 kg
[2021-05-20 03:53] LABS: ABSOLUTE NEUTROPHILS 5.2 thou/uL (1.4-8.2); BASOPHILS 0.2 % (0.0-2.0); EOSINOPHILS 6.8 % (0.0-3.0); HEMATOCRIT 43.6 % (42.0-52.0); LYMPHOCYTES 27.4 % (24.0-44.0); MCH 31.2 pg (26.0-34.0); MCHC 34.4 g/dL (28.0-37.0); MCV 90.6 fL (80.0-100.0); MONOCYTES 8.5 % (1.0-8.0); PLATELET COUNT 199 thou/uL (150-400); POLYS 57.1 % (36.0-66.0); RBC 4.81 mil/uL (4.50-6.00); RDW 13.1 % (10.5-14.5); WBC 9.1 thou/uL (4.0-11.0)
[2021-05-20 04:04] LABS: CALCIUM 8.6 mg/dL (8.5-10.1); CREATININE 1.3 mg/dL (0.7-1.3)
[2021-05-20 04:14] LABS: ALBUMIN 3.5 g/dL (3.4-5.0); TOTAL BILIRUBIN 0.4 mg/dL (0.2-1.0); TOTAL PROTEIN 6.6 g/dL (6.4-8.2)
[2021-05-20 06:01] VITALS: BP 122/77
--- NOTE | 2021-05-20 12:06 | EKG ---
[place] [address] [facility] [employer] [place] [address] ELECTROCARDIOGRAM REPORT Name: COLLINS LEVY [facility] [id number] Admission: 05/20/21 Attend Phys: Discharge: 05/20/21 Date of : 54 Report #: [id number] [facility] ED Test Date: 2021-05-20 Test Time: 03:05:52 Pat Name: COLLINS LEVY Department: Room: Gender: Doctor Assistant: penelope : 1950 Requested By: Franck Smith Order Number: [id number] MD: Destin Marx Measurements Intervals [place] Rate: 57 P: 39 [place]: 174 QRS: -6 QRSD: 91 T: 8 QT: 426 QTc: 415 Interpretive Statements Sinus rhythm Probable left atrial enlargement Compared to ECG 01/13/2021 00:47:59 Electronically Signed On 05-20-2021 12:06:49 COUNTER TOP ASSEMBLER by Destin Marx [email or web address] <ELECTRONICALLY SIGNED> By: Destin Marx MD 05/20/21 1206 0305 0305 MD ALFRED Dean
== END 2021-05-20 06:04 | disposition home or self-care (01) ==
LOC: ER 03:01
PROVIDERS: Emergency Medicine
DX: N28.1 Cyst of kidney, acquired (principal); R07.89 Other chest pain; Z87.891 Personal history of nicotine dependence; Z98.890 Other specified postprocedural states; Z79.899 Other long term (current) drug therapy; Z79.82 Long term (current) use of aspirin; Z95.5 Presence of coronary angioplasty implant and graft